=== PATIENT | female | born 2000 | race Caucasian/White ===

== ENCOUNTER 2025-06-23 10:21 | Emergency (ER) | payer OTHER, SELFPAY ==
[2025-06-23 10:26] VITALS: BP 136/86; PULSE 77; RESP 20; TEMP 36.4; O2SAT 97; BMI 40.4
--- NOTE | 2025-06-23 11:03 | ED.GENADULT ---
HPI - General Adult General Chief complaint: Extremity Pain/Injury, Lower Stated complaint: left ankle pain Time Seen by Provider: 06/23/25 10:41 History of Present Illness HPI narrative: Patient is in today as her left Achilles injury which was sutured 1 year ago in a local hospital has not healed well and she is left with pain over the Achilles tendon especially with leg and foot extension or flexion. Patient is having hard time bearing weight and she works at a warehouse. She is needing a renewal on her work restrictions which are no weight-bearing no lifting. He also has been lost in the shuffle with her outside physicians as far as ordering a follow-up MRI of the poorly healing Achilles. No signs of infection no redness no drainage no wound issues. She is left with a very painful nodule on the posterior aspect of her Achilles. Related Data Home Medications ?Medication ?Instructions ?Recorded ?Confirmed levonorgestrel-ethinyl estrad .ROUTE 06/23/25 Allergies Allergy/AdvReac Type Severity Reaction Status Date / Time No Known Drug Allergies Allergy Verified 06/23/25 10:26 Review of Systems Status of ROS: Reports: 10 or more systems reviewed and unremarkable except as noted in History and below Exam Narrative: Exam Narrative: EXAM GENERAL: Patient appears comfortable and well. EYES: No scleral icterus. ENT: Tympanic membranes and oropharynx normal. THYROID: no thyroid nodules or thyromegaly. LYMPH: No supraclavicular or cervical lymphadenopathy. SKIN: Visible skin seen during exam normal or with benign process only. EXT: Painful nodule in the posterior aspect of the left Achilles consistent with previously poorly healed rupture. l edema. HEART: Regular rate and rhythm with no murmurs, rubs, or gallops. LUNGS: Clear to auscultation bilaterally with no crackles or wheezes. ABD: Soft, non tender, non distended. PSYCH: Good eye contact, speech is not pressured. Const: Vital Signs, click to edit/add: Vital Signs - 24 hr 06/23/25 10:26 Temperature 97.6 F Pulse Rate [Pulse Oximeter] 77 Respiratory Rate 20 Blood Pressure [Ri ght Upper Arm] 136/86 Pulse Oximetry 97 Oxygen Delivery Me thod Room Air Course Course ED Course: Patient seen and examined. I did update her work note. I did give her my card will set her up for a MRI as an outpatient. She will continue limited weight-bearing a continue take anti-inflammatories and follow-up with me in the office. Vital Signs Vital signs: Initial Vital Signs Temperature 97.6 F 06/23/25 10:26 Temperature Source Temporal Artery Scan 06/23/25 10:26 Pulse Rate 77 06/23/25 10:26 Respiratory Rate 20 06/23/25 10:26 Blood Pressure 136/86 06/23/25 10:26 Blood Pressure Mean 102 06/23/25 10:26 Blood Pressure Position Sitting 06/23/25 10:26 Pulse Oximetry 97 06/23/25 10:26 Oxygen Delivery Method Room Air 06/23/25 10:26 Vital Signs Temperature 97.6 F 06/23/25 10:26 Pulse Rate 77 06/23/25 10:26 Respiratory Rate 20 06/23/25 10:26 Blood Pressure 136/86 06/23/25 10:26 Pulse Oximetry 97 06/23/25 10:26 Oxygen Delivery Method Room Air 06/23/25 10:26 Temperature 97.6 F 06/23/25 10:26 Pulse Rate 77 06/23/25 10:26 Respiratory Rate 20 06/23/25 10:26 Blood Pressure 136/86 06/23/25 10:26 Pulse Oximetry 97 06/23/25 10:26 Oxygen Delivery Method Room Air 06/23/25 10:26 Discharge Plan Discharge Clinical Impression: Achilles tendon injury Patient Disposition: Home, Self-Care Condition: Stable Instructions: Achilles Tendon Rupture (ED) Additional Instructions: Limited weight-bearing Anti-inflammatories as discussed Follow-up Dr. Villanueva by phone this week and will schedule an MRI. Activity Level: No Restrictions Discharge Diet: Regular Prescriptions: No Action levonorgestrel-ethinyl estrad [Andrew (28)] .ROUTE Stand Alone Forms: [employer] Info Instructions
--- OUTSIDE RECORDS SUMMARY | 2025-06-23 11:26 | XMS_ITS | Clinical Summary ---
Author Organization [facility] Address [address] [place] [address] Care Team Providers Care Learning Disabilities Specialist Name Role Phone Christel Hernandez M.D. Primary Care Provider Source Comments Patient records contain information from all sites at [facility]. For routine questions regarding patient records, call [phone] during business hours, M-F 8:00 AM - 5:00 PM Central Time. Record requests for emergency care only can be directed to [phone] at any time.[facility] Allergies No known active allergies Medications * This document contains information received from the source organization and may not represent a complete record from that organization. levonorgestreL- ethinyl estrad 0.15-0.03 mg per tablet Take 1 tablet by mouth daily. Active phentermine (Adipex-P) 37.5 mg tabletIndicatio ns:Obesity Body Mass Index 30-39.9 Adult Take 1 tablet (37.5 mg total) by mouth daily before morning meal. 90 tablet 1 03/22/2025 12:14 PM CDT 03/22/2025 Active Active Problems Problem Noted Date Diagnosed Date Attention Deficit With Hyperactivity Disorder Overview (03/23/2017): Attention Deficit Dis Hyperactive/Impuls Resolved Problems Problem Noted Date Diagnosed Date Resolved Date Morbid Obesity Body Mass Ind ex 40.0-44.9 Adult 03/30/2024 03/22/2025 Assessment & Plan (03/22/2025 10:34 AM CDT): BMI 38, previously 42-44. Discussed lifestyle changes and potential impact of control on weight. Phentermine can increase blood pressure, requiring monitoring. - Restart phentermine for up to six months. - Monthly nurse visits for blood pressure and weight monitoring. - Encourage high-protein, low-carb diet, increased water intake, regular exercise. - Advise GoodRx coupon if phentermine not covered by insurance. Orders: phentermine (Adipex-P) 37.5 mg tablet; Take 1 tablet (37.5 mg total) by mouth daily before morning meal. Primary Care nurse visit (clinic) - [facility] Region; Vital signs; Standing Depression Major Recurrent Moderate 04/02/2022 03/22/2025 Assessment & Plan (03/22/2025 10:34 AM CDT): - Patient states no longer having anxiety or depression and not currently on any medication Jocelyne Estrada M.D. Dependence Nicotine 05/13/2020 06/02/20 21 Acne Vulgaris 03/03/2018 03/29/2020 Anxiety Generalized Disorder 11/22/2015 03/22/2025 Immunizations Immunization Administration Dates Next Due 4vHPV (discontinued) 04/09/2016,11/22/2015,09/23 DTaP (Infanrix, Tripedia) 06/03/2004,,1999,1998,1999 HepA Pediatric/Adolescent 09/19/2013,06/23/2012 HepB Adult 08/02/2023 HepB, Unspecified 03/26/2000,1999,05/31/19 99 Hib (PRP-T) (ACTHIB, HIBERIX) 1999 Hib, Unspecified 11/26/2000,1999, 9 IPV 06/03/2004, 0,1999,1998 Influenza Split 08/16/2006,08/26/2005 Influenza, Unspecified 09/19/2013,09/13/2012 MCV4 (Menactra)(Discontinued) 03/03/2018, 012 MMR 06/03/2004,08/25/2000 MenB (BEXSERO) 11/18/2018,03/03/2018 Tdap 08/02/2023,06/23/2012 MOISE 06/23/2012,05/25/2000 influenza trivalent LAIV (Na marilee) (2 years through 49 years) 09/23/2015,08/06/2014 influenza vaccine quad (FLUZONE/FLUARIX) (6 months and older)(PF) 08/02/2023 Family History Medical History Relation Name Comments Diabetes Mother Zo Relation Name Status Comments Mother Zo Social History Tobacco Use Types Packs/Day Years Used Date Smoking Tobacco: Never Cigarettes 0.3 1 Passive Smoke Exposure: Current Smokeless Tobacco: Never Tobacco Cessation:Counseling Given: Not Answered Comments:1 time week Alcohol Use Standard Drinks/Week Comments Yes 1 (1 standard drink = 0.6 oz pur e alcohol) 2-4 times per month [facility] [employer] Answer Date Recorded In the past 12 months has e Daily Dealy, gas, oil, or water Architizer threatened to shut off services in your home? No 08/10/2024 Humiliation, Afraid, Rape, and Kick questionnair e Answer Date Recorded Within the last year, have y ou been afraid of your partner or ex-partner? No 03/19/2023 Within the last year, have y ou been humiliated or emotionally abused in other ways by your partner or ex-partner? No Within the last year, have y ou been kicked, hit, slapped, or otherwise physically hurt by your partner or ex-partner? No 03/19/2023 Within the last year, have y ou been raped or forced to have any kind of sexual activity by your partner or ex-partner? No 03/19/2023 Hunger Vital Sign Answer Date Recorded Within the past 12 months, y ou worried that your food would run out before you got the money to buy more. Never true 08/10/20 24 Within the past 12 months, t he food you bought just didn't last and you didn't have money to get more. Never true 08/10/2024 PRAPARE - Transportation Answer Date Re corded In the past 12 months, has l ack of transportation kept you from medical appointments or from getting medications? No 08/01 In the past 12 months, has l ack of transportation kept you from meetings, work, or from getting things needed for daily living? No 08/10/2024 Depression Answer Date Recor ded PHQ-9 Total Score (max 27) 2 03/22 Housing Stability Answer Date Recorded What is your living situation today? I have a [facility] place to live 08/10/2024 Education Answer Date Recorded What is the highest level of school you have completed or the highest degree you have received? 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 Gender Identity Female 03/03/2018 10:51 AM CDT Sexual Orientation Straight 03/03/2018 10 :51 AM CDT Last Filed Vital Signs Vital Sign Reading Time Taken Comments Blood Pressure 114/78 03/22/2025 8:51 AM CDT Pulse 84 03/22/2025 8:51 AM CDT Temperature 36.2 C (97.1 F) 03/22/2025 8:51 AM CDT Respiratory Rate 16 03/30/2024 1:01 PM CDT Oxygen Saturation 97% 04/11/2018 11:16 AM CDT Inhaled Oxygen Concentration - - Weight 111 kg (244 lb 14.9 oz) 03/22/2025 8:51 A M CDT Height 168.9 cm (5' 6.5) 04/20/2024 10:46 AM CD T Body Mass Index 38.95 04/20/2024 10:46 AM CDT Plan of Treatment Health Maintenance Due Date Last Done Comments HIV Screening 1999 Hepatitis C Screening 1999 COVID-19 Vaccine ( season) 2024 12/18/2021, 11/24/2021 Influenza Vaccine (#1) 2025 , 09/23/2015, 08/06/2014, Additional history exists DTaP,Tdap,and Td Vaccines (8 - Td or Tdap) 08/02/2033 08/02/2023, 06/23/2012, 06/03/2004, Additional history exists IPV Vaccines Completed 06/03/2004, 12/03, 1999, Additional history exists Varicella Vaccines Completed 06/23/2012, 05/25/2000 HPV Vaccines Completed 04/09/2016, 11/02, 09/23/2015 Cervical/Vaginal Cancer Screening Discontinued 07/10/2020 Chlamydia and Gonorrhea Screening Discontinued 03/25/2023, 07/10/2020, 03/03/2018 Hepatitis B Vaccines Completed 08/02/2023, 03/26/2000, 1999, Additional history exists Depression Screening (Annual PHQ-2) Completed 03/22/2025, 03/22/2025 Pneumococcal vaccine (0-49 years) Aged Out No longer eligible based on patient's age to complete this topic Medical Devices Implanted Type Area Library Circulation Assistant Device Identifier Shelf Expiration Date Model / Serial / Lot Gynecologic Other Gynecologic Other Arm Gynecologic Other-07/14/2016 Implanted:07/14 (Quantity not on file) Gynecologic Other Arm Procedures Procedure Name Priority Date/Time Associated Diagnosis Comments CHLAMYDIA/GONORRHOE AE AMPLIFIED RNA Routine 03/25/2023 2:42 PM CDT Screening For Venereal Disease THINPREP SCREEN HPV REFLEX Routine 07/10/2020 5:52 PM CDT Pap Smear Examination from Last 3 Months or Most Recently Relevant to Health Maintenance Results * Chlamydia / Gonorrhoeae Amplified RNA (03/25/2023 2:42 PM CDT) Source Urine, Urine, First Voided 03/26/2023 12:05 AM CDT MKTO Chlamydia trachomatis amplified RNA Negative Negative 03/26/2023 12:05 AM CDT MKTO Source Urine, Urine, First Voided 03/26/2023 12:05 AM CDT MKTO Neisseria gonorrhoeae amplified RNA Negative Negative 03/26/2023 12:05 AM CDT MKTO Urine (Urine, First Voided) 03/25/2023 2:42 PM CDT 03/25/2023 7:30 PM CDT us Joe Valle M.D. LAB MICROBIOLOGY - GENER AL ORDERABLES Final Result [facility] [address] [place] [address], [facility] MKTO [address] [facility] [address] [place] [address] * ThinPrep Screen HPV Reflex (07/10/2020 5:52 PM CDT) 07/15/2020 8:53 AM CDT [facility] Report electronically signed by CAROLINA Kurtz(ASCP) I verify that I have examined all relevant slides/materials for the specimen(s) and rendered or confirmed the diagnosis. 07/15/2020 8:53 AM CDT [facility] Gross Description Received specimen in a ThinPrep vial. 07/15/2020 8:53 AM CDT [facility] Pap Test Source Cervical/Endocervi carmen 07/15/2020 8:53 AM CDT [facility] Clinical History first pap 07/15/20 20 8:53 AM CDT [facility] Menstrual Status(LMP, PM, ) unknown 07/15/2020 8:53 AM CDT [facility] Hormone Therapy/Contracep tives none 07/15/2020 8:53 AM CDT [facility] Interpretation Cervical/Endocervi carmen (ThinPrep): Satisfactory for Evaluation Negative for Intraepithelial Lesion or Malignancy Shift in flex suggestive of bacterial vaginosis 07/15/2020 8:53 AM CDT [facility] Varies (Cervix/Endocerv ix) 07/10/2020 5:52 PM CDT 07/11/2020 9:05 AM CDT us Marjorie Beaver M.D. LAB PAP PATHDX ORDERABLES Final Result [facility] [address] [place] [address], [facility] [address] [place] [address] from Last 3 Months or Most Recently Relevant to Health Maintenance Insurance [employer] Care Teams Learning Disabilities Specialist Relationship Specialty Start Date End Date Christel Hernandez M.D. [address] [place] [phone] PCP - General 11/19/22
--- OUTSIDE RECORDS SUMMARY | 2025-06-23 11:26 | XMS_ITS | Clinical Summary ---
Author Organization [facility] Address [address] [place] [id number] Care Team Providers Care Leaflet Or Newspaper Deliverer Name Role Phone Joe Valle MD Primary Care Provide r Allergies No known active allergies Medications methylphenidate , 30-70 multiphase, (METADATE CD) 40 mg capsule Take 40 mg by mouth 9 Active methylphenidate , 30-70 multiphase, (METADATE CD) 40 mg capsule 0 Active methylphenidate , 30-70 multiphase, (METADATE CD) 50 mg capsule 9 Active methylphenidate HCl (RITALIN) 5 mg tablet Take 5 mg by mouth 9 Active etonogestrel subdermal implant (NEXPLANON) 68 mg implant Inject 1 Each subdermal one time. 1 Device 0 Active citalopram (CELEXA) 20 mg tablet 1 Active Emoquette tablet 1 Active methylphenidate , 30-70 multiphase, (METADATE CD) 40 mg capsule Take 40 mg by mouth. 2 Active phentermine (ADIPEX-P) 37.5 mg tablet Take 37.5 mg by mouth. 4 Active naproxen (NAPROSYN) 500 mg tablet Take 500 mg by mouth. 3 Active Active Problems No known active problems Social History Tobacco Use Types Packs/Day Years Used Date Smoking Tobacco: Never Smokeless Tobacco: Never Tobacco Cessation:Counseling Given: Yes Alcohol Use Standard Drinks/Week Comments Never 0 (1 standard drink = 0.6 oz pur e alcohol) Social Connections Answer Date Recorded Frequency of Communication with Friends and Fami ly Not on file 01/14/2022 Interpersonal Safety Answer Date Record ed Are you being hit, kicked, p ushed or yelled at (see row info)? 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 Gender Identity Not on file Sexual Orientation Not on file Obstetrics History Last Filed Vital Signs Vital Sign Reading Time Taken Comments Blood Pressure 123/60 07/07/2024 4:47 PM CDT Pulse 83 07/07/2024 4:47 PM CDT Temperature 36.4 C (97.6 F) 07/07/2024 4:47 PM CDT Respiratory Rate 18 07/07/2024 4:47 PM CDT Oxygen Saturation 99% 07/07/2024 4:47 PM CDT Inhaled Oxygen Concentration - - Weight 91.5 kg (201 lb 12.8 oz) 07/07/2024 4:47 PM CDT Height 167.6 cm (5' 6) 07/07/2024 4:47 PM CDT Body Mass Index 32.57 07/07/2024 4:47 PM CDT Plan of Treatment Health Maintenance Due Date Last Done Comments Tetanus booster 2010 Depression screening for age 12+ 2011 HIV for age 15-65 2014 HPV series for age 9-26 (1 - 3-dose series) 2014 BMI (ht and wt on same day) for age 18+ 2017 Hepatitis C screening for ag e 18-79 2017 Hepatitis B series for 19+ ( 1 of 3 - 19+ 3-dose series) 2018 Pap test for age 21-65 2020 COVID-19 vaccine series ( - 2023- season) 2024 12/18/2021, 11/24/2021 Influenza Vaccine (#1) 2025 Pneumococcal series for age 6-49 Aged Out No longer eligible b ased on patient's age to complete this topic Insurance [address] [id number] [facility] [address] [id number] [facility] [address] [id number] [employer] Member Subscriber Plan / Payer (Ef fective 2023-Present) Name:Alona Roldan Frances Member ID:-[id number] Relation to Subscriber:Employee Name:ABDIRAHMAN Subscriber ID:-[id number] Date of :2001 (Home) Address: [place] [address] Payer ID:Not on file Group ID:Not on file Type:Not on file Address: [address] [id number] [facility] Care Teams Leaflet Or Newspaper Deliverer Relationship Specialty Start Date End Date Joe Valle MD [address] [place] [phone] PCP - General Family Practice 04/11/23
== END 2025-06-23 11:34 | disposition home or self-care (01) ==
LOC: ED 11:23
PROVIDERS: Emergency Provider Internal Medicine
DX: S86.092A Other specified injury of left Achilles tendon, initial encounter (principal)
CPT/HCPCS: 99283